=== PATIENT | male | born 1950 | race Asian ===

== ENCOUNTER 2019-12-05 11:10 | Emergency (ER) | payer SELFPAY ==
[~2019-12-05] VITALS: Ht 170.2 cm; Wt 84.4 kg
--- NOTE | 2019-12-05 11:27 | NUR ---
PT CAME IN [facility] [place], LOW BACK PAIN, AND PAINFUL URINATION. PT IS CONNECTED TO MONITORING EQUIPMENT.
--- NOTE | 2019-12-05 12:18 | NUR ---
PT RESTING IN [facility] WITH CALL LIGHT WITHIN REACH, NO NEEDS AT THIS TIME. AWAITING LAB RESULTS
[2019-12-05 12:20] LABS: ALBUMIN 3.2 g/dL (3.4-5.0); ANION GAP 10 mmol/L (5-15); CALCIUM 8.2 mg/dL (8.5-10.1); CHLORIDE 99 mmol/L (98-107)
[2019-12-05 12:24] LABS: BASOPHILS # (AUTO) 0.02 x10^3/uL (0-0.1); BASOPHILS % (AUTO) 1 % (0-1); EOSINOPHILS # (AUTO) 0.02 x10^3/uL (0-0.4); EOSINOPHILS % (AUTO) 1 % (1-7); LYMPHOCYTES # (AUTO) 1.04 x10^3/uL (1-3.4); LYMPHOCYTES % (AUTO) 26 % (22-44); MD NO; MEAN CORPUSCULAR HEMOGLOBIN 30.8 pg (27.5-34.5); MEAN CORPUSCULAR HGB CONC 33.7 g/dL (33.2-36.2); MEAN CORPUSCULAR VOLUME 91.4 fL (81-97); MEAN PLATELET VOLUME 8.4 fL (7.4-10.4); MONOCYTES # (AUTO) 0.41 x10^3/uL (0.2-0.8); MONOCYTES % (AUTO) 10 % (2-9); NEUTROPHILS % (AUTO) 63 % (42-75); PLATELET COUNT 137 x10^3/uL (130-400); RED BLOOD COUNT 5.02 x10^6/uL (4.38-5.82); RED CELL DISTRIBUTION WIDTH 13.7 % (9.4-14.8)
[2019-12-05 12:25] LABS: ALANINE AMINOTRANSFERASE 22 U/L (12-78); ALKALINE PHOSPHATASE 118 U/L (45-117); BILIRUBIN,TOTAL 0.7 mg/dL (0.2-1.0); CREATININE 1.23 mg/dL (0.7-1.3); TOTAL PROTEIN 7.7 g/dL (6.4-8.2); TROPONIN I < 0.015 ng/mL (0.000-0.045)
[2019-12-05 13:29] VITALS: BP 139/81
== END 2019-12-05 13:30 | disposition home or self-care (01) ==
LOC: ED 12:12
DX: U07.1 COVID-19 (principal); R73.9 Hyperglycemia, unspecified; M54.5 Low back pain; R07.9 Chest pain, unspecified
CPT/HCPCS: 36415; 71045; 80053; 83880; 84484; 85025; 93005; 99285; U0001